=== PATIENT | male | born 1995 ===

== ENCOUNTER 2024-03-25 13:58 | Outpatient (CLI) | payer OTHER, SELFPAY ==
--- NOTE | 2024-03-25 14:11 | XR_ITS ---
WS: [id number] Exam: XR thoracic spine 3V* [id number] Date/Time of Exam: 03/25/2024 2:11 PM Reason For Exam: Thoracic back pain No fracture or dislocation. Slight levoscoliosis that may be positional. Normal paraspinal soft tissu es. XR/XR thoracic spine 3V* [id number] IMPRESSION: 1. No fracture or malalignment. 2. Slight levoscoliosis that may be positional.
== END 2024-03-25 13:59 | disposition home or self-care (01) ==
LOC: RAD 14:07
PROVIDERS: PCP Family Medicine; Visit Provider Family Medicine
DX: M54.6 Pain in thoracic spine (principal)
CPT/HCPCS: 72072

== ENCOUNTER 2024-03-27 09:47 | Outpatient (CLI) | payer OTHER, SELFPAY ==
--- NOTE | 2024-03-27 09:57 | XR_ITS ---
WS: [id number] Exam: XR lumbar spine 6V w f/e [id number] Date/Time of Exam: 03/27/2024 9:57 AM Reason For Exam: LOW BACK PAIN No fracture or dislocation. Disc spaces are preserved. Posterior elements are intact. No flexion or e xtension instability. Slight levoscoliosis. XR/XR lumbar spine 6V w f/e [id number] IMPRESSION: 1. Slight levoscoliosis otherwise normal lumbar spine study.
== END 2024-03-27 09:48 | disposition home or self-care (01) ==
LOC: RAD 09:49
PROVIDERS: PCP Family Medicine; Visit Provider Family Medicine
DX: M54.50 Low back pain, unspecified (principal)
CPT/HCPCS: 72114